=== PATIENT | male | born 1945 | race Caucasian/White ===

== ENCOUNTER 2021-05-11 06:25 | Inpatient (IN) ==
[~2021-05-11 06:25] MED LIST: Buffered Lidocaine 1% SYRIN 1 ml INTRADERM ONE; Lactated Ringers 1000 ml BAG 1,000 ML IV SCH
[2021-05-11] MEDS ORDERED: Ropivacaine 5 MG/ML 20 ML VIAL 0.5% (100 MG) ONE (07:16)
[2021-05-11] MEDS ORDERED: Midazolam 2 mg/2 ml VIAL 1 mg/ml 2 ml VIAL (2 mg) ONE (07:35)
[2021-05-11] MEDS ORDERED: fentaNYL 100 mcg/2 ml 50 MCG/ML VIAL ONE (07:35)
[2021-05-11] MEDS ORDERED: Lidocaine 2% PF 5 ML VIAL ONE (07:36)
[2021-05-11] MEDS ORDERED: Sodium Citrate/Citric Acid LIQ 15 ML UDC ONE (07:47)
[2021-05-11] MEDS ORDERED: ceFAZolin 2 GM PREMIX 2 GM/50 ML BAG IVPB ONE (08:00)
[2021-05-11] MEDS ORDERED: ceFAZolin VIAL VIAL ONE (08:04)
[2021-05-11] MEDS ORDERED: EPHEDrine (Pressors) 50 MG/ML VIAL ONE (08:24)
[2021-05-11] MEDS ORDERED: diPHENhydraMINE IV 50 MG/ML 1 ml VIAL (BENADRYL) IV PRN ×2 (08:58→09:21)
[2021-05-11] MEDS ORDERED: Prochlorperazine 5 mg/ml 2 ml VIAL (10 mg) IV PRN (08:58)
[2021-05-11] MEDS ORDERED: Naloxone 0.4 mg VIAL 0.4 mg/ml 1 ml VIAL IV PRN (08:58)
[2021-05-11] MEDS ORDERED: HYDROmorphone 1 MG/1 ML SYRINGE IV PRN (08:58)
[2021-05-11] MEDS ORDERED: Morphine 2 MG/ML SYRINGE IV PRN (09:21)
[2021-05-11] MEDS ORDERED: Lactulose 30 ml UDC PO PRN (09:21)
[2021-05-11] MEDS ORDERED: diPHENhydraMINE 25 mg TAB PO PRN (09:21)
[2021-05-11] MEDS ORDERED: Ondansetron 4 mg VIAL 2 MG/ML 2 ml VIAL IV PRN (09:21)
[2021-05-11] MEDS ORDERED: Ondansetron ODT 4 mg TAB 4 MG TAB PO PRN (09:21)
[2021-05-11] MEDS ORDERED: Magnesium Hydroxide LIQ 30 ML UDC PO PRN (09:21)
[2021-05-11] MEDS ORDERED: Albuterol HFA INHALER 8 gm MDI INH PRN (09:25)
[2021-05-11] MEDS ORDERED: Propofol 10 MG/ML 20 ML BTL ONE (09:47)
[2021-05-11] MEDS ORDERED: Ondansetron 4 mg VIAL 2 MG/ML 2 ml VIAL ONE (10:08)
[2021-05-11] MEDS: Lactated Ringers 1000 ml BAG 1,000 ML IV SCH ×2 (13:00→23:17)
[2021-05-11] MEDS ORDERED: Mometasone/Formoter 200/5 MDI INH PRN (15:30)
[2021-05-11] MEDS: ceFAZolin 1 GM ADVAN 1 GM in NS 0.9% 50 ML 50 ML IVPB SCH ×2 (16:22→23:17)
[2021-05-11] MEDS: Magnesium Hydroxide LIQ 30 ML UDC PO SCH (19:48)
[2021-05-12 06:07] LABS: Hematocrit 41 % (42-52); Hemoglobin 14.3 g/dL (14.0-18.0); Mean Platelet Volume 8.3 fL (7.4-10.4); Platelet Count 189 10^3/uL (150-450)
[2021-05-12 06:25] LABS: Blood Urea Nitrogen 21 mg/dL (6-24); CO2 Carbon Dioxide 31 mmol/L (22-32); Calcium 8.8 mg/dL (8.6-10.3); Chloride 102 mmol/L (101-111); Glucose 138 mg/dL (70-100); Potassium 5.3 mmol/L (3.5-5.0); Sodium 133 mmol/L (135-145)
[2021-05-12] MEDS: ceFAZolin 1 GM ADVAN 1 GM in NS 0.9% 50 ML 50 ML IVPB SCH (08:08)
[2021-05-12] MEDS ORDERED: Vitamin THERAPEUTIC TAB PO SCH (09:00)
[2021-05-12] MEDS: Magnesium Hydroxide LIQ 30 ML UDC PO SCH (10:08)
[2021-05-12 12:05] VITALS: BP 141/80
== END 2021-05-12 13:30 | disposition home or self-care (01) | DRG 470 ==
LOC: AA 06:25 → SSU 12:01
PROVIDERS: ADMIT Orthopaedic Surgery Adult Reconstructive Orthopaedic Surgery; ATTEND Orthopaedic Surgery Adult Reconstructive Orthopaedic Surgery